=== PATIENT | female | born 1985 | race Caucasian/White ===

== ENCOUNTER 2021-07-01 11:48 | Emergency (ER) | payer MEDICAID ==
[2021-07-01] MEDS: Sodium Chloride 0.9% 10 ML Syringe FLUSH PRN ×2 (12:04→13:27)
[2021-07-01] MEDS ORDERED: Aspirin 81 MG Tab.Chew PO STA (12:16)
[2021-07-01 12:42] VITALS: PULSE 126
[2021-07-01] MEDS: Nitroglycerin 0.4 MG Tab.SL SL PRN ×3 (12:50→13:00)
[2021-07-01 13:01] VITALS: BP 124/83
[2021-07-01] MEDS ORDERED: Ketorolac 30 MG/ML SDV IVPUSH STA (13:17)
[2021-07-01] MEDS ORDERED: Morphine 2 MG/ML SYRINGE IVPUSH STA (13:17)
--- NOTE | 2021-07-01 13:20 | EDM.PDOC ---
ED HPI GENERAL MEDICAL PROBLEM - General Chief Complaint: Chest Pain Stated Complaint: SOB Time Seen by Provider: 07/01/21 12:40 Source of Information: Reports: Patient History Limitations: Reports: No Limitations - History of Present Illness INITIAL COMMENTS - FREE TEXT/NARRATIVE: Patient presented to the ED because of left sided chest pain which started 6 days ago. The pain is sharp,8/10, worse with breathing and movements. There is no dyspnea, nausea,diaphoresis. Left Chest Pain Score (Numeric/FACES): 5 - Related Data Allergies Allergy/AdvReac Type Severity Reaction Status Date / Time amoxicillin AdvReac Nausea and Verified 07/01/21 12:11 Vomiting Home Meds: Home Meds Albuterol [Proventil HFA] 2 puff INH Q4H PRN 07/01/21 [History] Naproxen 500 mg PO BID #15 tablet 07/01/21 [Rx] Past Medical History HEENT History: Reports: Impaired Vision Respiratory History: Reports: Asthma Gastrointestinal History: Reports: Cholelithiasis Genitourinary History: Reports: None [employer] History: Reports: None Musculoskeletal History: Reports: Fibromyalgia, Other (See Below) Other Musculoskeletal History: RIGHT HIP BURSITIS Neurological History: Reports: Migraines Psychiatric History: Reports: Anxiety, Depression Endocrine/Metabolic History: Reports: Obesity/BMI 30+ Hematologic History: Reports: None Immunologic History: Reports: None Oncologic (Cancer) History: Reports: None Dermatologic History: Reports: None - Past Surgical History Head Surgeries/Procedures: Reports: None HEENT Surgical History: Reports: Oral Surgery GI Surgical History: Reports: None Female Surgical History: Reports: None Endocrine Surgical History: Reports: None Dermatological Surgical History: Reports: None Social & Family History - Tobacco Use Tobacco Use Status *Q: Never Tobacco User - Caffeine Use Caffeine Use: Reports: None - Recreational Drug Use Recreational Drug Use: No ED ROS GENERAL - Review of Systems Review Of Systems: See Below Constitutional: Reports: No Symptoms HEENT: Reports: No Symptoms Respiratory: Reports: No Symptoms Cardiovascular: Reports: Chest Pain Endocrine: Reports: No Symptoms GI/Abdominal: Reports: No Symptoms : Reports: No Symptoms Musculoskeletal: Reports: No Symptoms Skin: Reports: No Symptoms Neurological: Reports: No Symptoms Psychiatric: Reports: Hallucinations Hematologic/Lymphatic: Reports: No Symptoms ED EXAM, GENERAL - Physical Exam Exam: See Below Exam Limited By: No Limitations General Appearance: Alert, No Apparent Distress Eye Exam: Bilateral Eye: PERRL Ears: Normal External Exam, Normal Canal Nose: Normal Inspection, Normal Mucosa, No Blood Throat/Mouth: Normal Inspection, Normal Lips, Normal Teeth Head: Atraumatic, Normocephalic, Facial Swelling Neck: Normal Inspection, Supple, Non-Tender, Full Range of Motion Respiratory/Chest: No Respiratory Distress, Lungs Clear, Normal Breath Sounds, No Accessory Muscle Use, Other (Left chest wall tenderness) Cardiovascular: Normal Peripheral Pulses, Regular Rate, Rhythm, No Edema, No Gallop, No JVD, No Murmur, No Rub GI/Abdominal: Normal Bowel Sounds, Soft, Non-Tender, No Organomegaly Back Exam: Normal Inspection, Full Range of Motion Extremities: Normal Inspection, Normal Range of Motion, Non-Tender, No Pedal Edema, Normal Capillary Refill Neurological: Alert, Oriented, CN II-XII Intact, Normal Cognition Psychiatric: Normal Affect, Normal Mood #1 Interpretation EKG Date: 07/01/21 Time: 12:10 Rhythm: NSR Rate (Beats/Min): 99 [place]: Normal P-Wave: Present QRS: Normal ST-T: Normal QT: Normal CO/PQ Interval: 123 Comparison: NA - No Prior EKG EKG Interpretation Comments: NSR Course - Vital Signs Text/Narrative:: Lab/EKG result was reviewed and discussed with patient ASA 324 mg PO x1 Toradol 30 mg IV x1 Morphine 2 mg IV x1 Last Recorded V/S: Last Vital Signs Temp 36.6 C 07/01/21 12:36 Pulse 126 H 07/01/21 12:36 Resp 17 07/01/21 12:36 BP 124/83 07/01/21 13:00 Pulse Ox 97 07/01/21 12:36 - Orders/Labs/Meds Orders: Active Orders 24 hr Category Date Time Status Saline Lock Insert [OM.PC] Routine Oth 07/01/21 12:14 Ordered EKG 12 Lead [EK] Routine Ther 07/01/21 12:14 Ordered Labs: Laboratory Tests 07/01/21 07/01/21 07/01/21 Range/Units 12:00 12:00 12:00 WBC (3.0-10.3) x10-3/uL RBC (3.60-5.20) x10(6)uL Hgb (11.4-15.5) g/dL Hct (34.2-48.2) % MCV (76.7-100.5) fL MCH (23.9-33.9) pg MCHC (31.9-34.8) g/dL RDW (12.3-16.5) % Plt Count (151-488) x10(3)uL MPV (7.1-12.4) fL Neut % (Auto) (30.8-76.2) % Lymph % (Auto) (18.4-52.1) % Carter % (Auto) (4.4-15.7) % Eos % (Auto) (0.6-8.1) % Baso % (Auto) (0.2-1.5) % Neut # (Auto) (1.5-6.3) x10-3/uL Lymph # (Auto) (1.0-4.4) x10-3/uL Carter # (Auto) (0.3-1.0) x10-3/uL Eos # (Auto) (0.0-0.8) x10-3/uL Baso # (Auto) (0.0-0.1) x10-3/uL D-Dimer, Quantitative 0.33 (0.0-0.59) mg/LFEU Sodium 143 (135-145) mmol/L Potassium 3.8 (3.5-5.3) mmol/L Chloride 106 (100-110) mmol/L Carbon Dioxide 26 (21-32) mmol/L BUN 11 (7-18) mg/dL Creatinine 0.8 (0.55-1.02) mg/dL Est Cr Clr Drug Dosing TNP Estimated GFR (MDRD) > 60 (>60) BUN/Creatinine Ratio 13.8 (9-20) Glucose 125 H (80-116) mg/dL Calcium 9.0 (8.6-10.2) mg/dL Total Bilirubin 0.3 (0.1-1.3) mg/dL AST 18 (5-25) IU/L ALT 28 (12-36) U/L Alkaline Phosphatase 64 (56-112) IU/L Troponin I < 4.0 L (4.0-60.3) pg/mL Total Protein 7.5 (6.0-8.0) g/dL Albumin 3.7 (3.5-5.2) g/dL Globulin 3.8 g/dL Albumin/Globulin Ratio 1.0 07/01/21 Range/Units 12:00 WBC 9.0 (3.0-10.3) x10-3/uL RBC 5.20 (3.60-5.20) x10(6)uL Hgb 12.9 (11.4-15.5) g/dL Hct 40.9 (34.2-48.2) % MCV 78.6 (76.7-100.5) fL MCH 24.8 (23.9-33.9) pg MCHC 31.6 L (31.9-34.8) g/dL RDW 16.1 (12.3-16.5) % Plt Count 325 (151-488) x10(3)uL MPV 8.2 (7.1-12.4) fL Neut % (Auto) 66.1 (30.8-76.2) % Lymph % (Auto) 24.9 (18.4-52.1) % Carter % (Auto) 6.5 (4.4-15.7) % Eos % (Auto) 1.9 (0.6-8.1) % Baso % (Auto) 0.6 (0.2-1.5) % Neut # (Auto) 6.0 (1.5-6.3) x10-3/uL Lymph # (Auto) 2.3 (1.0-4.4) x10-3/uL Carter # (Auto) 0.6 (0.3-1.0) x10-3/uL Eos # (Auto) 0.2 (0.0-0.8) x10-3/uL Baso # (Auto) 0.1 (0.0-0.1) x10-3/uL D-Dimer, Quantitative (0.0-0.59) mg/LFEU Sodium (135-145) mmol/L Potassium (3.5-5.3) mmol/L Chloride (100-110) mmol/L Carbon Dioxide (21-32) mmol/L BUN (7-18) mg/dL Creatinine (0.55-1.02) mg/dL Est Cr Clr Drug Dosing Estimated GFR (MDRD) (>60) BUN/Creatinine Ratio (9-20) Glucose (80-116) mg/dL Calcium (8.6-10.2) mg/dL Total Bilirubin (0.1-1.3) mg/dL AST (5-25) IU/L ALT (12-36) U/L Alkaline Phosphatase (56-112) IU/L Troponin I (4.0-60.3) pg/mL Total Protein (6.0-8.0) g/dL Albumin (3.5-5.2) g/dL Globulin g/dL Albumin/Globulin Ratio Meds: Medications Discontinued Medications Generic Name Dose Route Start Last Admin Trade Name Freq PRN Reason Stop Dose Admin Aspirin 324 mg 07/01/21 12:16 07/01/21 12:47 Aspirin 81 Mg Tab.Chew PO 07/01/21 12:17 324 mg NOW STA Administration Ketorolac Tromethamine 30 mg 07/01/21 13:17 07/01/21 13:21 Ketorolac 30 Mg/Ml Sdv IVPUSH 07/01/21 13:18 30 mg NOW STA Administration Morphine Sulfate 2 mg 07/01/21 13:17 07/01/21 13:26 Morphine 2 Mg/Ml Syringe IVPUSH 07/01/21 13:18 2 mg NOW STA Administration Nitroglycerin 0.4 mg 07/01/21 12:16 07/01/21 13:00 Nitroglycerin 0.4 Mg Tab.Sl SL 0.4 mg Q5M PRN Administration Chest Pain Sodium Chloride 10 ml 07/01/21 12:14 07/01/21 13:27 Sodium Chloride 0.9% 10 Ml Syringe FLUSH 10 ml ASDIRECTED PRN Administration Keep Vein Open Departure - Departure Time of Disposition: 13:30 Disposition: Home, Self-Care 01 Condition: Good Clinical Impression: Atypical chest pain Prescriptions: Naproxen 500 mg PO BID #15 tablet Instructions: Nonspecific Chest Pain, Adult, [id number] Referrals: Andi Vaca MD [Primary Care Provider] - Forms: ED Department Discharge Additional Instructions: Please read discharge instructions on chest wall pain Take naproxen 500 mg twice daily ffor 7 days Follow up as needed Sepsis Event Note (ED) - Evaluation Sepsis Screening Result: No Definite Risk - My Orders Last 24 Hours: My Active Orders 07/01/21 12:14 Saline Lock Insert [OM.PC] Routine EKG 12 Lead [EK] Routine - Assessment/Plan Last 24 Hours: My Active Orders 07/01/21 12:14 Saline Lock Insert [OM.PC] Routine EKG 12 Lead [EK] Routine
--- NOTE | 2021-07-01 15:42 | CR ---
INDICATION: Chest pain. CHEST ONE-VIEW 75566: AP upright portable view of the chest 07/01/21 was compared with 10/02/16. The heart remains normal in size and shape. Mediastinum and bony thorax are unremarkable. No consolidating pneumonia or effusion was seen. Overlying EKG leads are noted. Evidence of exogenous obesity is noted. IMPRESSION: No acute process. MTDD
== END 2021-07-01 14:03 | disposition home or self-care (01) ==
LOC: FB.ED 11:48
DX: R07.89 Other chest pain (principal); J45.909 Unspecified asthma, uncomplicated; E66.9 Obesity, unspecified; Z68.41 Body mass index [BMI] 40.0-44.9, adult; Z88.0 Allergy status to penicillin; Z79.899 Other long term (current) drug therapy
CPT/HCPCS: 36415; 71045; 80053; 84484; 85025; 85379; 93005; 96374; 96375; 99285; A9270; J1885; J2270